=== PATIENT | female | born 1975 | race African-American/Black ===

== ENCOUNTER → 2017-08-05 | Outpatient (CLI) | payer OTHER ==
[~2017-08-05] MED LIST: NONE PER PT
== END | disposition home or self-care (01) ==
LOC: CFH 12:18
PROVIDERS: ATTEND Surgery
DX: N63.10 Unspecified lump in the right breast, unspecified quadrant (principal)

== ENCOUNTER 2019-06-04 06:59 | Outpatient (CLI) | payer OTHER | END 2019-06-04 23:59 | disposition home or self-care (01) | LOC: CFH 06:59 | PROVIDERS: ATTEND Specialist | DX: Z12.31 Encounter for screening mammogram for malignant neoplasm of breast (principal) | CPT/HCPCS: 77067 ==